=== PATIENT | female | born 1990 | race Caucasian/White ===

== ENCOUNTER 2020-11-13 11:56 | Emergency (ER) | payer SELFPAY ==
[~2020-11-13 11:56] MED LIST: BACTROBAN OINT22 GM EXT; CLARINEX5 MG PO; CYCLOBENZAPRINE10 MG PO; EPIPEN 2-P0.3 MG/0.3 INJ; IBU400 MG PO; MEDROL DOSEPAK 24 MG PO; NAPROSYN500 MG PO
== END 2020-11-13 13:29 | disposition home or self-care (01) ==
LOC: ER1 11:56
DX: U07.1 COVID-19 (principal); I10 Essential (primary) hypertension; Z90.89 Acquired absence of other organs; F17.200 Nicotine dependence, unspecified, uncomplicated
CPT/HCPCS: 99283; U0002